=== PATIENT | male | born 1970 | race African-American/Black ===

== ENCOUNTER 2023-01-08 12:32 | Inpatient (IN) | payer OTHER ==
[2023-01-08 13:35] VITALS: BMI 20.2
[2023-01-08] MEDS ORDERED: BENZOCAINE/MENTHOL (CHLORASEPTIC ) LOZENGE MM PRN (14:00)
[2023-01-08] MEDS ORDERED: NICOTINE POLACRILEX 2 MG GUM BUC PRN (14:00)
[2023-01-08] MEDS ORDERED: diazePAM 5 MG TABLET PO ONE (14:00)
[2023-01-08] MEDS ORDERED: MAG HYDROX/AL HYDROX/SIMETH 30 ML UNIT-DOSE CUP PO PRN (14:00)
[2023-01-08] MEDS ORDERED: BISMUTH SUBSALICYLATE 524 MG/30 ML PO PRN (14:00)
[2023-01-08] MEDS ORDERED: MAGNESIUM HYDROX 2400MG/30ML ORAL SUSPENSION 30 ML CUP PO PRN (14:00)
[2023-01-08] MEDS ORDERED: IBUPROFEN 600 MG TABLET (FP) PO PRN (14:00)
[2023-01-08] MEDS ORDERED: ACETAMINOPHEN 325 MG TABLET (FP) PO PRN (14:00)
[2023-01-08] MEDS ORDERED: IBUPROFEN 400 MG TABLET (FP) PO PRN (14:00)
[2023-01-08] MEDS ORDERED: BENZONATATE 200 MG CAPSULE PO PRN (14:00)
[2023-01-08] MEDS ORDERED: POLYETHYLENE GLYCOL (HEALTHYLAX) 3350 17 GM PACKET PO PRN (14:00)
[2023-01-08] MEDS ORDERED: LOPERAMIDE HCL 2 MG CAPSULE PO PRN (14:00)
[2023-01-08] MEDS ORDERED: DICYCLOMINE HCL 10 MG CAPSULE PO PRN (14:00)
[2023-01-08] MEDS ORDERED: guaiFENesin 600 MG TABLET.ER (FP) PO PRN (14:00)
[2023-01-08] MEDS ORDERED: P-EPHED 60MG/TRIPROLIDI 2.5MG TABLET PO PRN (14:00)
[2023-01-08] MEDS ORDERED: ONDANSETRON *ODT* 4 MG TABLET SL PRN (14:00)
[2023-01-08] MEDS ORDERED: diazePAM 5 MG TABLET ONE (14:35)
[2023-01-08] MEDS: METHOCARBAMOL 500 MG TABLET PO PRN ×2 (15:31→20:57)
[2023-01-08] MEDS: diazePAM 5 MG TABLET PO SCH ×2 (17:58→23:51)
[2023-01-08] MEDS: diazePAM 5 MG TABLET PO PRN (20:55)
[2023-01-08] MEDS: MELATONIN 5 MG TABLETS PO SCH (22:58)
[2023-01-08] MEDS: THIAMINE HCL 100 MG TABLET (FP) PO SCH (22:58)
[2023-01-08] MEDS: hydrOXYzine PAMOATE 25 MG CAPSULE (FP) PO PRN (22:58)
[2023-01-09] MEDS: diazePAM 5 MG TABLET PO SCH ×4 (05:52→22:33)
[2023-01-09 09:21] LABS: CHLORIDE 107 mmol/L (98-107); POTASSIUM 4.4 mmol/L (3.5-5.1); SODIUM 143 mmol/L (136-145)
[2023-01-09 09:25] LABS: HEMATOCRIT 37.5 % (35.4-49); HEMOGLOBIN 12.7 GM/dL (11.7-16.9); MCH 29.3 pg (25.7-33.7); MCHC 33.8 g/dl (32.0-35.9); MEAN CELL VOLUME 86.5 fl (80-96); PLATELET COUNT 206 10^3/uL (134-434); RBC 4.34 M/mm3 (4.00-5.60); RDW 13.7 % (11.9-15.9); WHITE BLOOD COUNT 7.8 K/mm3 (4.0-10.0)
[2023-01-09 09:29] LABS: ALBUMIN 3.8 g/dl (3.4-5.0); CALCIUM 8.7 mg/dL (8.5-10.1)
[2023-01-09 09:30] LABS: ANION GAP 8 MMOL/L (8-16); BLOOD UREA NITROGEN 15.6 mg/dL (7-18); CO2 28 mmol/L (21-32); GLUCOSE,RANDOM 135 mg/dL (74-106)
[2023-01-09 09:33] LABS: SGOT/AST 69 U/L (15-37); SGPT/ALT 53 U/L (13-61)
[2023-01-09 09:34] LABS: BILIRUBIN,TOTAL 0.4 mg/dL (0.2-1); TOT PROT 7.3 g/dl (6.4-8.2)
[2023-01-09 09:36] LABS: ALK PHOS 75 U/L (45-117)
[2023-01-09] MEDS: PRENATAL VITAMINS W/ FOLIC ACID TABLET (FP) PO SCH (10:16)
[2023-01-09] MEDS: MELATONIN 5 MG TABLETS PO SCH (22:32)
[2023-01-09] MEDS: THIAMINE HCL 100 MG TABLET (FP) PO SCH (22:33)
[2023-01-10] MEDS: diazePAM 5 MG TABLET PO SCH ×3 (05:14→22:13)
[2023-01-10] MEDS: PRENATAL VITAMINS W/ FOLIC ACID TABLET (FP) PO SCH (10:30)
[2023-01-10] MEDS: hydrOXYzine PAMOATE 25 MG CAPSULE (FP) PO PRN ×2 (14:02→22:14)
[2023-01-10] MEDS ORDERED: cloNIDine HCL 0.1 MG TABLET PO ONE (17:11)
[2023-01-10] MEDS: diazePAM 5 MG TABLET PO PRN (17:45)
[2023-01-10] MEDS: THIAMINE HCL 100 MG TABLET (FP) PO SCH (22:13)
[2023-01-10] MEDS: MELATONIN 5 MG TABLETS PO SCH (22:13)
[2023-01-10] MEDS: METHOCARBAMOL 500 MG TABLET PO PRN (22:14)
[2023-01-11] MEDS: diazePAM 5 MG TABLET PO SCH ×2 (05:22→17:23)
[2023-01-11] MEDS: diazePAM 5 MG TABLET PO PRN (10:24)
[2023-01-11] MEDS: hydrOXYzine PAMOATE 25 MG CAPSULE (FP) PO PRN ×2 (10:24→22:10)
[2023-01-11] MEDS: PRENATAL VITAMINS W/ FOLIC ACID TABLET (FP) PO SCH (10:24)
[2023-01-11] MEDS: MELATONIN 5 MG TABLETS PO SCH (22:10)
[2023-01-11] MEDS: METHOCARBAMOL 500 MG TABLET PO PRN (22:10)
[2023-01-11] MEDS: THIAMINE HCL 100 MG TABLET (FP) PO SCH (22:10)
[2023-01-12] MEDS ORDERED: diazePAM 5 MG TABLET PO ONE (06:00)
[2023-01-12 09:24] VITALS: BP 142/96; PULSE 74; RESP 20; TEMP 98
[2023-01-12] MEDS: PRENATAL VITAMINS W/ FOLIC ACID TABLET (FP) PO SCH (09:43)
== END 2023-01-12 09:55 | disposition home or self-care (01) | DRG 775 ==
LOC: YASAS 12:32 → Y3N 14:29
PROVIDERS: ADMIT Allergy & Immunology; ATTEND Surgery
PROC: HZ2ZZZZ Detoxification Services for Substance Abuse Treatment (ICD-10-PCS; principal; 2023-01-08)
DX: F10.230 Alcohol dependence with withdrawal, uncomplicated (principal); F17.210 Nicotine dependence, cigarettes, uncomplicated; G47.00 Insomnia, unspecified; M54.50 Low back pain, unspecified; G89.29 Other chronic pain
CPT/HCPCS: 36415; 71045-TC-FY; 80053; 80307; 83036; 85027; 86780; 87635; 87811; Q0162